=== PATIENT | male | born 1975 | race Caucasian/White ===

== ENCOUNTER 2016-08-14 21:36 | Emergency (ER) | payer MEDICARE, OTHER ==
[2016-08-14 22:35] LABS: HEMOGLOBIN 14.7 gm/dl (14.0-17.5); RED BLOOD COUNT 4.81 M/UL (4.20-5.50)
[2016-08-14 22:58] LABS: BUN/CREATININE RATIO 10 (0-10)
== END 2016-08-15 08:50 | disposition short-term general hospital (02) ==
LOC: ER1 21:36
PROVIDERS: Specialist/Technologist Athletic Trainer
DX: S06.0X0A Concussion without loss of consciousness, initial encounter (principal); S05.11XA Contusion of eyeball and orbital tissues, right eye, initial encounter; F17.200 Nicotine dependence, unspecified, uncomplicated; Y09 Assault by unspecified means; Z79.899 Other long term (current) drug therapy
CPT/HCPCS: 36415; 70450; 70486; 71010; 80053; 82550; 85025; 96374; 99285; G0480; J2310

== ENCOUNTER → 2016-09-10 | Outpatient (CLI) | payer OTHER | LOC: LAB 10:35 | DX: Z02.83 Encounter for blood-alcohol and blood-drug test (principal) | CPT/HCPCS: 36415 ==

== ENCOUNTER 2016-09-14 14:14 | Emergency (ER) | payer OTHER ==
[2016-09-14 19:02] LABS: HEMOGLOBIN 13.9 gm/dl (14.0-17.5); RED BLOOD COUNT 4.67 M/UL (4.20-5.50); WHITE BLOOD COUNT 10.3 K/UL (4.5-11.0)
[2016-09-14 19:24] LABS: BUN/CREATININE RATIO 12 (0-10)
== END 2016-09-14 23:25 ==
LOC: ER1 14:14
PROVIDERS: Physician Assistant
DX: R07.89 Other chest pain (principal); G40.909 Epilepsy, unspecified, not intractable, without status epilepticus; I10 Essential (primary) hypertension; F17.210 Nicotine dependence, cigarettes, uncomplicated; R06.02 Shortness of breath; Z79.899 Other long term (current) drug therapy
CPT/HCPCS: 36415; 71010; 80053; 82550; 82553; 83874; 83880; 84484; 85025; 93005; 96360; 99285; J7040